=== PATIENT | male | born 1980 | race African-American/Black ===

== ENCOUNTER 2017-02-23 17:48 | Outpatient (CLI) | payer OTHER | END 2017-02-23 17:49 | disposition critical access hospital (66) | LOC: EMS 17:48 | PROVIDERS: ATTEND Surgery | DX: R94.31 Abnormal electrocardiogram [ECG] [EKG] (principal) | CPT/HCPCS: A0425; A0429 ==

== ENCOUNTER 2017-02-23 18:13 | Emergency (ER) | payer OTHER ==
[2017-02-23 18:42] LABS: BILIRUBIN,URINE NEGATIVE (NEGATIVE); UA w/ MICROSCOPIC CHARGE YES
[2017-02-23 19:25] LABS: WBC,URINE >25 /HPF (0-3)
[2017-02-23 19:26] LABS: UR CULTURE IF IND INDICATED
[2017-02-23 19:38] VITALS: BP 177/102
--- NOTE | 2017-02-23 19:40 | XRAY Preliminary Report ---
Exam: XR CHEST 2 VIEW PA/LAT IMPRESSION: Normal 2-view chest radiography. [facility] SITE ID: [id number]
--- NOTE | 2017-02-23 19:43 | XRAY Report ---
EXAM: CHEST RADIOGRAPHY EXAM DATE: 02/23/2017 07:35 PM. CLINICAL HISTORY: Dyspnea and chest pain. COMPARISON: None. TECHNIQUE: 2 views. FINDINGS: Lungs/Pleura: No focal opacities evident. No pleural effusion. No pneumothorax. Normal volumes. Mediastinum: Heart and mediastinal contours are unremarkable. Other: None. IMPRESSION: Normal 2-view chest radiography. [facility] Referring Provider Line: [phone] SITE ID: [id number]
--- NOTE | 2017-02-23 19:44 | ED Physician Documentation ---
PD HPI CHEST PAIN - Stated complaint Stated Complaint: ETOH - Chief complaint Chief Complaint: General - History obtained from History obtained from: Patient, Other - History of Present Illness Timing - onset: Today Timing - onset during: Light activity Timing - duration: Minutes (he had been drinking last night (had come out of alcohol treatment recently and is being monitored) and is being brought back to alcohol treatment/rehab. He was having some dyspnea. It was noted that his heart rate and BP were elevated so brought for evaluation before going to treatment. He is wthout symptoms here.) Timing - details: Gradual onset. No: Still present Quality: Tightness Location: Substernal Radiation: No: Jaw, Neck, Back, Abdominal, Left upper extremity, Right upper extremity, Other Improved by: Rest Associated symptoms: Shortness of air. No: Diaphoresis, Nausea, Feeling faint / dizzy, General Weakness, Palpitations Similar symptoms before: Diagnosis (enlarged heart and pericarditis couple months ago.) Review of Systems Constitutional: denies: Fever, Chills Nose: denies: Rhinorrhea / runny nose, Congestion Throat: denies: Sore throat Cardiac: denies: Palpitations Respiratory: denies: Dyspnea, Cough GI: denies: Abdominal Pain, Nausea, Vomiting : denies: Dysuria, Frequency Neurologic: denies: Generalized weakness, Focal weakness, Numbness, Near syncope , Syncope Psychiatric: denies: Depressed, Suicidal PD PAST MEDICAL HISTORY - Past Medical History Past Medical History: Yes Cardiovascular: Hypertension, Other (pericarditis) Respiratory: None Neuro: None Endocrine/Autoimmune: None GI: None : None HEENT: None Musculoskeletal: None Derm: None Other Past Medical History: G6PD deficiency - Past Surgical History Past Surgical History: No - Present Medications Home Medications: Ambulatory Orders Medication Instructions Recorded Confirmed Sulfamethox/Trimeth 800/160 1 each PO BID #10 tablet 02/23/17 [Bactrim Ds 800/160] - Allergies Allergies/Adverse Reactions: Allergies Allergy/AdvReac Type Severity Reaction Status Date / Time aspirin AdvReac Nausea Verified 02/23/17 18:21 - Social History Does the pt smoke?: No Smoking Status: Never smoker Does the pt drink ETOH?: No Does the pt have substance abuse?: No - Immunizations Immunizations are current?: Yes - POLST Patient has POLST: No PD ED PE NORMAL - Vitals Vital signs reviewed: Yes - General General: Alert and oriented X 3, No acute distress, Well developed/nourished - HEENT HEENT: Pharynx benign - Neck Neck: Supple, no meningeal sign, No adenopathy, Thyroid normal - Cardiac Cardiac: RRR, No murmur, No rub - Respiratory Respiratory: Clear bilaterally - Abdomen Abdomen: Soft, Non tender - Derm Derm: Normal color, Warm and dry - Extremities Extremities: No tenderness to palpate, No edema, No calf tenderness / cord - Neuro Neuro: Alert and oriented X 3, No motor deficit, Normal speech Results - Vitals Vitals: Oxygen O2 Source Room air - EKG (time done) 18:24 Rate: Rate (enter#) (108) Rhythm: Sinus tachycardia [place]: Normal Intervals: Normal [place] Ischemia: Non specific changes (anterolateral). No: ST elevation c/w ischemia, ST depression - Labs Labs: Microbiology 02/23/17 18:19 Urine Culture - Final Urine,Clean Catch 10-50,000 COLONIES/ML Polymicrobial growth including potential pathogens. This is suggestive of skin or other contamination. Laboratory Tests 02/23/17 18:19 Urine Color DARK YELLOW Urine Clarity CLEAR Urine pH 6.0 Ur Specific [place] >=1.030 H Urine Protein 100 H Urine Glucose (UA) NEGATIVE Urine Ketones 15 H Urine Occult Blood NEGATIVE Urine Nitrite NEGATIVE Urine Bilirubin NEGATIVE Urine Urobilinogen 1 (NORMAL) Ur Leukocyte Esterase NEGATIVE Urine RBC 0-5 Urine WBC >25 H Ur Squamous Epith Cells FEW Squamous Urine Crystals >50 Calcium Oxalate Amorphous Sediment Marked Urine Bacteria Many H Urine Mucus Moderate Strands Ur Microscopic Review INDICATED Urine Culture Comments INDICATED - Rads (name of study) chest Radiology: Prelim report reviewed (normal heart size; no acute changes) PD MEDICAL DECISION MAKING - ED course Complexity details: reviewed results, considered differential (Does not seem to be in obvious withdrawal. He is without symptoms. ECG is okay with mild nonspecific T wave changes. Consider pericarditis. I feel comfortable discharging with tachycardia still. ), d/w patient Departure - Departure Disposition: 01 Home, Self Care Clinical Impression: Tachycardia Pericarditis Qualifiers: Pericarditis type: unspecified type Chronicity: unspecified Qualified Code(s): I31.9 - Disease of pericardium, unspecified Condition: Stable Record reviewed to determine appropriate education?: Yes Instructions: ED UTI Cystitis Male Follow-Up: [facility] [place] [Provider Group] Prescriptions: Sulfamethox/Trimeth 800/160 [Bactrim Ds 800/160] 1 each PO BID #10 tablet Comments: Your blood pressure and heart rate are up a little bit right now. There is no signs of significant cause based on EKG and x-ray. You do have signs of a mild bladder infection on urine test and note there was some antibiotic for that. Otherwise he could take some ibuprofen or naproxen twice daily if needed for inflammation or pains. Your heart rate may be up a little bit because of under hydration through the day today. Drink lots of fluids and have some dinner tonight. Follow-up as planned with the alcohol treatment. Discharge Date/Time: 02/23/17 20:21
[2017-02-23] MEDS ORDERED: SULFAMETH/TRIMETH DS 800/160 MG TABLET PO STA (20:09)
[2017-02-23] MEDS ORDERED: NAPROXEN 250 MG TABLET PO STA (20:09)
[2017-02-23] MEDS ORDERED: LORazepam 0.5 MG TABLET PO STA (20:12)
[2017-02-23] MEDS ORDERED: SULFAMETH/TRIMETH DS 800/160 MG TABLET PO ONE (20:21)
[2017-02-23] MEDS ORDERED: NAPROXEN 250 MG TABLET PO ONE (20:21)
[2017-02-23] MEDS ORDERED: LORazepam 0.5 MG TABLET ONE (20:22)
== END 2017-02-23 20:21 | disposition home or self-care (01) ==
LOC: ED 18:13
DX: R00.0 Tachycardia, unspecified (principal); I31.9 Disease of pericardium, unspecified; I10 Essential (primary) hypertension; N30.90 Cystitis, unspecified without hematuria
CPT/HCPCS: 71020; 81001; 87086; 93005; 99283; 99284; A9270; 81003